=== PATIENT | female | born 1955 | race Caucasian/White ===

== ENCOUNTER 2016-11-30 08:01 | Day surgery (SDC) | payer OTHER ==
[2016-11-23 12:11] LABS: APPEARANCE,URINE CLEAR; BILIRUBIN,URINE NEGATIVE (NEGATIVE); GLUCOSE, URINE NEGATIVE (NEGATIVE); KETONES,URINE NEGATIVE (NEGATIVE); LEUKOCYTE ESTERASE,URINE NEGATIVE (NEGATIVE); NITRITE,URINE NEGATIVE (NEGATIVE); PROTEIN,URINE NEGATIVE (NEGATIVE); URINE SPECIFIC GRAVITY 1.003; UROBILINOGEN,URINE NEGATIVE mg/dL (<2.0)
[2016-11-23 12:18] LABS: HEMATOCRIT 42.1 % (36.0-47.0); HEMOGLOBIN 14.5 g/dL (12.0-15.5); HGB HCT DIFFERENCE 1.4; MEAN CORPUSCULAR HEMOGLOBIN 33.6 pg (27.0-33.4); MEAN CORPUSCULAR HGB CONC 34.4 g/dL (32.0-36.0); MEAN CORPUSCULAR VOLUME 98 fl (80-97); RED BLOOD COUNT 4.31 10^6/uL (3.72-5.28); RED CELL DISTRIBUTION WIDTH 12.7 % (11.5-14.0); WHITE BLOOD COUNT 5.8 10^3/uL (4.0-10.5)
[2016-11-23 12:41] LABS: ANION GAP 14 (5-19); BLOOD UREA NITROGEN 11 mg/dL (7-20); CALCIUM 10.6 mg/dL (8.4-10.2); CARBON DIOXIDE 29 mmol/L (22-30); CHLORIDE 101 mmol/L (98-107); CREATININE RESULT 0.65 mg/dL (0.52-1.25); GLUCOSE 90 mg/dL (75-110); POTASSIUM 4.4 mmol/L (3.6-5.0); SODIUM 144.4 mmol/L (137-145)
--- NOTE | 2016-11-23 12:55 | EKG REPORT ---
SEVERITY:- NORMAL ECG - SINUS RHYTHM : Confirmed by: Danilo Terry 23-Nov-2016 12:55:33
[~2016-11-30 08:01] MED LIST: BUPIVACAINE HCL 0.5 % INJ/PF 30 ML SDV ONE; CEFAZOLIN 2 GM/D5W RTU 2 GM/50 ML RTUPB IV PRN; LACTATED RINGERS 1000 ML IV PRN; LIDOCAINE 0.5% INJ-PF (5 MG/ML) 50 ML SDV SUBCUT PRN
[2016-11-30] MEDS ORDERED: HYDROMORPHONE HCL INJ/PF 2 MG/ML AMPULE ONE (10:13)
[2016-11-30] MEDS ORDERED: ONDANSETRON HCL INJ/PF 4 MG/2 ML SDV ONE (10:14)
[2016-11-30] MEDS ORDERED: DEXAMETHASONE SOD PHOSPHATE INJ 4 MG/1 ML VIAL ONE (10:14)
[2016-11-30] MEDS ORDERED: EPHEDRINE SULFATE INJ 50 MG/1 ML AMPULE ONE (10:14)
[2016-11-30] MEDS ORDERED: MIDAZOLAM 2 MG/2 ML INJ ONE (10:14)
[2016-11-30] MEDS ORDERED: PROPOFOL INJ 200 MG/20 ML VIAL IV ONE (10:14)
[2016-11-30] MEDS ORDERED: FENTANYL CITRATE INJ/PF 100 MCG/2 ML AMPUL ONE (10:14)
[2016-11-30] MEDS ORDERED: DIPHENHYDRAMINE HCL 50 MG/ML VIAL IV PRN (11:04)
[2016-11-30] MEDS ORDERED: FENTANYL CITRATE INJ/PF 100 MCG/2 ML AMPUL IV PRN ×3 (11:04)
[2016-11-30] MEDS ORDERED: PROMETHAZINE HCL INJ 25 MG/1 ML VIAL IV PRN (11:04)
[2016-11-30] MEDS ORDERED: OXYCODONE-ACETAMINOPHEN 5-325 MG TABLET PO PRN (13:14)
[2016-11-30] MEDS ORDERED: ONDANSETRON HCL INJ/PF 4 MG/2 ML SDV IV PRN (13:14)
[2016-11-30] MEDS ORDERED: MORPHINE SULFATE 10 MG/ML INJ IV PRN (13:14)
--- NOTE | 2016-11-30 13:15 | PDOC DISCHARGE SUMMARY ---
Discharge Summary (SDC) - Discharge Final Diagnosis: Right Elbow Arthroscopy w/ Debridement, Open Cubital Tunnel Release Date of Surgery: 11/30/16 Discharge Date: 11/30/16 Condition: Good Treatment or Instructions: Schedule Follow Up w/ Dr. Lawrence Barnes @ [facility] to be seen in 10-14 days or as scheduled [place]: [place]: [place]: Keep dressing clean/dry/intact. Ice and elevate May begin finger range of motion attempting to make full fist. Stool softener of choice when on pain medication Prescriptions: Oxycodone HCl/Acetaminophen [Percocet 5-325 mg Tablet] 1 - 2 tab PO ASDIR PRN # 40 tablet PRN Reason: Discharge Diet: As Tolerated Respiratory Treatments at Home: Deep Breathing/Coughing Discharge Activity: No Lifting Over 10 Pounds, No Lifting/Push/Pulling Report the Following to Your Physician Immediately: Fever over 101 Degrees, Unusual Bleeding, Redness, Swelling, Warmth, Increased Soreness, Drainage-Yellow , Drainage-Foul Smelling, Numbness, Tingling Sensation
[2016-11-30] MEDS ORDERED: ACETAMINOPHEN 100 ML IV ONE (13:57)
[2016-11-30] MEDS ORDERED: KETOROLAC TROMETHAMINE INJ/PF 30 MG/1 ML SDV ONE (13:57)
--- NOTE | 2016-11-30 14:04 | Operative Report ---
Operative Report DATE OF SURGERY: 11/30/16 PREOPERATIVE DIAGNOSIS: Right Elbow DJD, Cubital Tunnel Syndrome POSTOPERATIVE DIAGNOSIS: Same OPERATION: Right Elbow Arthroscopy w/ Extensive Debridement, Capsulectomy w/ Open In Situ Cubital Tunnel Release SURGEON: FRANCISCO TURK ANESTHESIA: GA COMPLICATIONS: None ESTIMATED BLOOD LOSS: Minimal PROCEDURE: Indication for above procedure: Pleasant 61-year-old female with long-standing history of right elbow DJD and cubital tunnel syndrome. Patient attempted conservative measures but ultimately she continued to have discomfort and limited motion. At that point we ordered an MRI demonstrating degenerative changes and likely impingement limiting her range of motion thus we discussed treatment options including operative versus nonoperative intervention. Risks and benefits of the surgical procedure were explained patient verbalized understanding consented for the procedure. Procedure In Detail: Patient was seen and evaluated in the preoperative holding area. The RIGHT upper extremity was initialized and marked. Patient received 2g of Ancef IV for bacterial prophylaxis. Patient was taken back to the operative room where transferred to the operative table and placed under general anesthesia. Once they were adequately anesthetized a nonsterile tourniquet was placed on the upper extremity. Patient was placed in the lateral decubitus position bilateral lower extremities were carefully padded. An axillary roll was placed. The arm was placed in a Western arm alexandra and secured with Coban. A surgical team debriefing was performed ensuring all instrumentation was available, the surgical procedure was discussed with possible concerns reviewed. The upper extremity was prepped with chlorhexidine and alcohol and draped in a sterile fashion. A timeout was done identifying correct patient, procedure and extremity everyone in attendance agree with this and verbalized no concerns. The extremity was exsanguinated the tourniquet was inflated to 250 mmHg. The joint was insufflated through the radiocarpal articulation with 25 mL of normal saline. The proximal anterior medial portal was established the stab incision the medial intermuscular septum was located with the hemostat and blunt dissection was performed. The arthroscope was introduced into the elbow joint. There is significant degenerative changes with osteophytes along the anterior aspect of the capitellum of the humerus and the coronoid. Via triangulation a proximal anterolateral portal was established and a stab incision was made and dissection performed. Mild fraying of the radiocapitellar joint was noted. With synovitis. With the switching stick and the lateral portal I carefully elevated the capsule off the anterior aspect of the humerus which immediately provided improved range of motion. With the suction off I then was able to resect a portion of the capsule to further provide. A posterior lateral plica band was noted along the radial neck and was resected. The 4 mm bur was then introduced and the osteophyte on the capitellum was resected to a stable base. Then turned my attention to the coronoid. The scope was placed through the lateral portal and the bur placed through the medial portal. The coronoid osteophyte was resected. Underlies visualization patient had full flexion with no evidence of anterior impingement and near full extension. At this juncture I turned my attention to the posterior compartment. A posterior central portal was established and via triangulation a posterior lateral portal was established as well. Partial synovectomy was performed along the posterolateral compartment until visualization of the olecranon tip. There was evidence of multiple loose bodies along the posterior compartment largest one measuring approximately 6 mm. These were successfully removed. With range of motion there was impingement of the olecranon within the fossa. A second portal was established just distal to the previous posterior lateral portal the arthroscopic shaver was introduced performing an extensive debridement of the olecranon fossa and overgrown osteophytes. I then introduced the bur and removed the spurs along the olecranon tip until patient had no residual impingement of the olecranon within the fossa. I was able to achieve elbow range of motion 5/greater than 150. At this point I turned my attention to the open cubital tunnel release. A 5 cm longitudinal skin incision was made over the cubital tunnel. Blunt dissection was blunt dissection was performed to the soft tissues. Small branches of the medial antebrachial cutaneous nerve were identified and protected. The ulnar nerve was then identified proximally adjacent to the medial intermuscular septum. It was released from any soft tissue along the medial triceps. Duong's ligament was released which was causing compression at the level of the medial epicondyle. The 2 heads of the FCU were then identified and the fascia was released. Blunt dissection was performed identifying the first motor branch of the ulnar nerve any overlying compression at the level of the 2 heads of the FCU was incised. There is no visual evidence or palpable evidence of remaining compression proximally or distally. With elbow range of motion the ulnar nerve demonstrated no evidence of subluxation or residual compression. The wound was then irrigated with normal saline. The tourniquet was deflated and 2 minutes of compression were placed over the wound. Any peripheral vasculature was coagulated bipolar cautery until the wound was dry. The subcutaneous tissues were closed with interrupted 3-0 Vicryl suture. Skin was closed with interrupted horizontal mattress 3-0 nylon. The portal incisions were closed with interrupted 3-0 nylon. 30 mL of 0.5% Marcaine without epinephrine was injected for postoperative pain control. Wound was dressed with Xeroform 4 x 4's and a soft dressing. Sponge counts, instrument counts, needle counts counts were correct. Patient was then awoken from anesthesia. Transferred from the operating room table to the operating room stretcher. There was no intraoperative complications patient tolerated procedure well stable to PACU. Postoperative plan: Patient will begin occupational therapy within 5-7 days of the surgical procedure focusing on passive and active extension. Patient will follow-up in 2 weeks for wound check.
[2016-11-30 15:56] VITALS: BP 120/68
== END 2016-11-30 15:30 | disposition home or self-care (01) ==
LOC: OROUT 08:01
PROVIDERS: ATTEND Orthopaedic Surgery
PROC: 0RBL4ZZ Excision of Right Elbow Joint, Percutaneous Endoscopic Approach (ICD-10-PCS; 2016-11-30)
PROC: 01N40ZZ Release Ulnar Nerve, Open Approach (ICD-10-PCS; principal; 2016-11-30 10:15)
DX: M19.022 Primary osteoarthritis, left elbow (principal); G56.22 Lesion of ulnar nerve, left upper limb; M25.722 Osteophyte, left elbow; M65.832 Other synovitis and tenosynovitis, left forearm; M24.022 Loose body in left elbow; Z79.51 Long term (current) use of inhaled steroids
CPT/HCPCS: 93005; 36415; 85027; 80048; 81001; 93010; 64718; 29838; J2250; J1100; J3010; J1885; J1170; J2405; J2704; J0690; J0131; 1710; J3490